=== PATIENT | female | born 1945 | race Caucasian/White ===

== ENCOUNTER 2020-08-15 07:06 | Inpatient (IN) | payer OTHER, BC ==
[2020-08-15 08:28] LABS: BASO % 0.7 % (0-2.0); EOS % 0.1 % (0-4.5); HEMATOCRIT 34.8 % (32.4-45.2); HEMOGLOBIN 11.8 GM/dL (10.7-15.3); LYMPH % 9.3 % (8-40); MCH 30.6 pg (25.7-33.7); MEAN CELL VOLUME 90.1 fl (80-96); MEAN PLT VOLUME 9.7 fl (7.5-11.1); NEUT % 80.9 % (42.8-82.8); PLATELET COUNT 235 K/MM3 (134-434); RBC 3.86 M/mm3 (3.60-5.2)
[2020-08-15 08:49] LABS: EPI CELLS 28 /uL (0-25.1); HYALINE CASTS 0 /uL (0-3.1); URINE APPEARANCE TURBID; URINE BACTERIA 222 /uL (0-1359); URINE BILIRUBIN NEGATIVE (NEGATIVE); URINE COLOR YELLOW; URINE GLUCOSE (UA) NEGATIVE (NEGATIVE); URINE KETONE NEGATIVE (NEGATIVE); URINE LEUK ESTERASE TRACE (NEGATIVE); URINE NITRITE NEGATIVE (NEGATIVE); URINE PROTEIN NEGATIVE (NEGATIVE); URINE UROBILINOGEN 0.2 mg/dL (0.2-1.0); URINE WBC 24 /uL (0-25.8)
[2020-08-15 08:52] LABS: CALCIUM 8.9 mg/dL (8.5-10.1); POTASSIUM 3.9 mmol/L (3.5-5.1)
[2020-08-15 08:54] LABS: ALBUMIN 3.6 g/dl (3.4-5.0); BLOOD UREA NITROGEN 33.7 mg/dL (7-18)
[2020-08-15 08:56] LABS: CREATININE 1.3 mg/dL (0.55-1.3)
[2020-08-15 08:57] LABS: TOT PROT 6.8 g/dl (6.4-8.2)
[2020-08-15] MEDS ORDERED: CEFTRIAXONE 2,000 MG in DEXTROSE 5%-WATER - 50 ML IVPB ONE (09:52)
[2020-08-15] MEDS ORDERED: SODIUM CHLORIDE 0.9% 500 ML INFUS.BAG IV ONE ×2 (09:52→23:12)
[2020-08-15] MEDS ORDERED: CEFTRIAXONE 2 GM/100 ML BAG IVPB ONE (10:02)
[2020-08-15] MEDS ORDERED: ACETAMINOPHEN 1000 MG/100 ML VIAL (NON FORMULARY) IVPB ONE (10:14)
[2020-08-15] MEDS ORDERED: ACETAMINOPHEN INJECTION 100 ML IVPB ONE (10:23)
[2020-08-15 10:42] LABS: INR 1.7 (0.83-1.09); PROTHROMBIN TIME (PATIENT) 20.6 SEC (9.7-13.0)
[2020-08-15 14:50] LABS: URINE CRYSTALS PRESENT /hpf; URINE RBC 114.3 /uL (0-23.9)
[2020-08-15] MEDS ORDERED: ONDANSETRON 4 MG/2 ML VIAL ONE (15:22)
[2020-08-15] MEDS ORDERED: KETOROLAC TROMETHAMINE 15 MG/ML VIAL IVPUSH ONE (15:22)
[2020-08-15] MEDS ORDERED: ONDANSETRON 4 MG/2 ML VIAL IVPUSH ONE (15:22)
[2020-08-15] MEDS ORDERED: KETOROLAC TROMETHAMINE 15 MG/ML VIAL ONE (15:23)
[2020-08-15 17:36] VITALS: BMI 35.5
[2020-08-15] MEDS ORDERED: TAMSULOSIN HCL 0.4 MG CAP PO ONE (23:01)
[2020-08-15] MEDS ORDERED: HEPARIN NA (PORCINE) 5,000 UNITS/ML 1ML VIAL IVPUSH PRN (23:02)
[2020-08-16] MEDS: SODIUM CHLORIDE 1,000 ML IV SCH ×3 (00:22→23:21)
[2020-08-16] MEDS: HEPARIN - 25,000 UNIT in SODIUM CHLORIDE 495 ML IV SCH ×2 (00:30→13:50)
[2020-08-16 00:33] LABS: INR 1.83 (0.83-1.09); PROTHROMBIN TIME (PATIENT) 22.1 SEC (9.7-13.0)
[2020-08-16 00:36] LABS: ACTIVATED PTT 32.5 SECONDS (25.2-36.5)
[2020-08-16 08:42] LABS: BASO % 0.8 % (0-2.0); EOS % 2.1 % (0-4.5); HEMATOCRIT 30.2 % (32.4-45.2); HEMOGLOBIN 10.2 GM/dL (10.7-15.3); LYMPH % 15.4 % (8-40); MCH 30.7 pg (25.7-33.7); MCHC 33.7 g/dl (32.0-36.0); MEAN PLT VOLUME 10.5 fl (7.5-11.1); MONO % 10.1 % (3.8-10.2); NEUT % 71.6 % (42.8-82.8); PLATELET COUNT 161 K/MM3 (134-434); RBC 3.31 M/mm3 (3.60-5.2); RDW 14.2 % (11.6-15.6)
[2020-08-16 09:12] LABS: CALCIUM 7.6 mg/dL (8.5-10.1)
[2020-08-16 09:13] LABS: ALBUMIN 2.9 g/dl (3.4-5.0); BLOOD UREA NITROGEN 31.6 mg/dL (7-18); MAGNESIUM 1.7 mg/dL (1.8-2.4)
[2020-08-16 09:15] LABS: URIC ACID 4.7 mg/dL (2.6-7.2)
[2020-08-16 09:17] LABS: BILIRUBIN,TOTAL 0.7 mg/dL (0.2-1); CREATININE 1.5 mg/dL (0.55-1.3); PHOSPHOROUS 3.2 mg/dL (2.5-4.9); TOT PROT 5.6 g/dl (6.4-8.2)
[2020-08-16] MEDS ORDERED: DEXTROSE 5%-WATER - 50 ML IVPB ONE (09:50)
[2020-08-16] MEDS ORDERED: cefTRIAXone SODIUM 1 GM VIAL ONE (09:50)
[2020-08-16] MEDS: LOSARTAN POTASSIUM 50 MG TABLET PO SCH (09:52)
[2020-08-16] MEDS: TAMSULOSIN HCL 0.4 MG CAP PO SCH (09:52)
[2020-08-16] MEDS: CEFTRIAXONE 1 GM in DEXTROSE 5%-WATER - 50 ML IVPB SCH (09:52)
[2020-08-16] MEDS: HEPARIN NA (PORCINE) 5,000 UNITS/ML 1ML VIAL IVPUSH PRN ×2 (13:49→21:00)
[2020-08-16] MEDS ORDERED: WARFARIN NA 3 MG TABLET PO SCH (18:00)
[2020-08-16] MEDS ORDERED: ACETAMINOPHEN 325 MG TABLET (FP) PO ONE (20:56)
[2020-08-16] MEDS ORDERED: LIDOCAINE 5% TOPICAL PATCH TP ONE (20:56)
[2020-08-16] MEDS: ROSUVASTATIN CA 5 MG TABLET (FP) PO SCH (23:14)
[2020-08-17] MEDS ORDERED: LIDOCAINE PATCH REMOVAL MC SCH (09:00)
[2020-08-17 10:14] LABS: POTASSIUM 4.2 mmol/L (3.5-5.1)
[2020-08-17 10:16] LABS: ALBUMIN 3.1 g/dl (3.4-5.0); BLOOD UREA NITROGEN 29.4 mg/dL (7-18); CALCIUM 8.2 mg/dL (8.5-10.1)
[2020-08-17 10:17] LABS: HEMATOCRIT 31.3 % (32.4-45.2); HEMOGLOBIN 10.4 GM/dL (10.7-15.3); MCH 30.5 pg (25.7-33.7); MCHC 33.3 g/dl (32.0-36.0); MEAN CELL VOLUME 91.5 fl (80-96); MEAN PLT VOLUME 10.7 fl (7.5-11.1); PLATELET COUNT 185 K/MM3 (134-434); RBC 3.42 M/mm3 (3.60-5.2); RDW 14.3 % (11.6-15.6); WHITE BLOOD COUNT 8.8 K/mm3 (4.0-10.0)
[2020-08-17 10:24] LABS: CREATININE 1.5 mg/dL (0.55-1.3)
[2020-08-17 10:25] LABS: BILIRUBIN,TOTAL 0.6 mg/dL (0.2-1); TOT PROT 6.2 g/dl (6.4-8.2)
[2020-08-17] MEDS: TAMSULOSIN HCL 0.4 MG CAP PO SCH (10:29)
[2020-08-17] MEDS: LOSARTAN POTASSIUM 50 MG TABLET PO SCH (10:29)
[2020-08-17] MEDS: HEPARIN - 25,000 UNIT in SODIUM CHLORIDE 495 ML IV SCH (10:45)
[2020-08-17] MEDS ORDERED: cefTRIAXone SODIUM 1 GM VIAL ONE (11:32)
[2020-08-17] MEDS ORDERED: DEXTROSE 5%-WATER - 50 ML IVPB ONE (11:32)
[2020-08-17] MEDS: ACETAMINOPHEN 1000 MG/100 ML VIAL (NON FORMULARY) IVPB PRN ×2 (11:43→21:05)
[2020-08-17] MEDS: CEFTRIAXONE 1 GM in DEXTROSE 5%-WATER - 50 ML IVPB SCH (11:44)
[2020-08-17] MEDS: SODIUM CHLORIDE 1,000 ML IV SCH (23:30)
[2020-08-18 09:20] LABS: HEMATOCRIT 28.5 % (32.4-45.2); HEMOGLOBIN 9.6 GM/dL (10.7-15.3); MCH 30.6 pg (25.7-33.7); MCHC 33.6 g/dl (32.0-36.0); MEAN PLT VOLUME 10.8 fl (7.5-11.1); PLATELET COUNT 173 K/MM3 (134-434); RBC 3.14 M/mm3 (3.60-5.2); RDW 13.9 % (11.6-15.6); WHITE BLOOD COUNT 6.8 K/mm3 (4.0-10.0)
[2020-08-18 09:43] LABS: POTASSIUM 3.9 mmol/L (3.5-5.1)
[2020-08-18 09:47] LABS: ALBUMIN 2.8 g/dl (3.4-5.0); BLOOD UREA NITROGEN 22.2 mg/dL (7-18); CALCIUM 7.9 mg/dL (8.5-10.1)
[2020-08-18 09:50] LABS: CREATININE 1.3 mg/dL (0.55-1.3)
[2020-08-18 09:52] LABS: BILIRUBIN,TOTAL 0.6 mg/dL (0.2-1); TOT PROT 5.6 g/dl (6.4-8.2)
[2020-08-18] MEDS: HEPARIN - 25,000 UNIT in SODIUM CHLORIDE 495 ML IV SCH (10:00)
[2020-08-18] MEDS: TAMSULOSIN HCL 0.4 MG CAP PO SCH (12:14)
[2020-08-18] MEDS: LOSARTAN POTASSIUM 50 MG TABLET PO SCH (12:14)
[2020-08-18] MEDS: CEFTRIAXONE 1 GM in DEXTROSE 5%-WATER - 50 ML IVPB SCH (12:14)
[2020-08-18] MEDS: SODIUM CHLORIDE 1,000 ML IV SCH ×2 (12:14→20:25)
[2020-08-18] MEDS ORDERED: cefTRIAXone SODIUM 1 GM VIAL ONE (13:52)
[2020-08-18] MEDS ORDERED: DEXTROSE 5%-WATER - 50 ML IVPB ONE (13:53)
[2020-08-18] MEDS: traMADol HCL 50 MG TABLET PO PRN (18:25)
[2020-08-18 19:03] LABS: HEMATOCRIT 32.1 % (32.4-45.2); HEMOGLOBIN 10.7 GM/dL (10.7-15.3); MCH 30.5 pg (25.7-33.7); MCHC 33.3 g/dl (32.0-36.0); MEAN CELL VOLUME 91.4 fl (80-96); MEAN PLT VOLUME 10.8 fl (7.5-11.1); PLATELET COUNT 214 K/MM3 (134-434); RBC 3.51 M/mm3 (3.60-5.2); RDW 13.8 % (11.6-15.6); WHITE BLOOD COUNT 9.2 K/mm3 (4.0-10.0)
[2020-08-19] MEDS: SODIUM CHLORIDE 1,000 ML IV SCH (03:38)
[2020-08-19] MEDS: HEPARIN - 25,000 UNIT in SODIUM CHLORIDE 495 ML IV SCH (06:35)
[2020-08-19 09:14] LABS: HEMATOCRIT 29.9 % (32.4-45.2); HEMOGLOBIN 9.9 GM/dL (10.7-15.3); MCH 30.2 pg (25.7-33.7); MCHC 33.1 g/dl (32.0-36.0); MEAN CELL VOLUME 91.3 fl (80-96); MEAN PLT VOLUME 10.3 fl (7.5-11.1); PLATELET COUNT 213 K/MM3 (134-434); RBC 3.27 M/mm3 (3.60-5.2); RDW 14.4 % (11.6-15.6); WHITE BLOOD COUNT 8.6 K/mm3 (4.0-10.0)
[2020-08-19 09:31] LABS: POTASSIUM 3.8 mmol/L (3.5-5.1)
[2020-08-19 09:33] LABS: CALCIUM 7.8 mg/dL (8.5-10.1)
[2020-08-19 09:34] LABS: ALBUMIN 2.9 g/dl (3.4-5.0)
[2020-08-19 09:37] LABS: CREATININE 1.1 mg/dL (0.55-1.3)
[2020-08-19 09:38] LABS: BILIRUBIN,TOTAL 0.4 mg/dL (0.2-1); TOT PROT 5.9 g/dl (6.4-8.2)
[2020-08-19] MEDS ORDERED: DEXTROSE 5%-WATER - 50 ML IVPB ONE (10:17)
[2020-08-19] MEDS ORDERED: cefTRIAXone SODIUM 1 GM VIAL ONE (10:17)
[2020-08-19] MEDS: CEFTRIAXONE 1 GM in DEXTROSE 5%-WATER - 50 ML IVPB SCH (10:18)
[2020-08-19] MEDS: LOSARTAN POTASSIUM 50 MG TABLET PO SCH (10:19)
[2020-08-19] MEDS: TAMSULOSIN HCL 0.4 MG CAP PO SCH (10:19)
[2020-08-19] MEDS ORDERED: FUROSEMIDE 40 MG/4 ML INJECTABLE VIAL IVPUSH ONE (10:30)
[2020-08-19] MEDS: NYSTATIN POWDER 100,000 UNITS/GM - 15 GM TOPICAL POWDER TP SCH (16:10)
[2020-08-19 16:49] LABS: INR 1.2 (0.83-1.09); PROTHROMBIN TIME (PATIENT) 14.5 SEC (9.7-13.0)
[2020-08-19 16:52] LABS: ACTIVATED PTT 28.3 SECONDS (25.2-36.5)
[2020-08-19] MEDS: WARFARIN NA 5 MG TABLET PO SCH (17:44)
[2020-08-19] MEDS: traMADol HCL 50 MG TABLET PO PRN (20:08)
[2020-08-19] MEDS: ROSUVASTATIN CA 5 MG TABLET (FP) PO SCH (22:07)
[2020-08-20 09:15] LABS: BASO % 0.8 % (0-2.0); EOS % 5.2 % (0-4.5); HEMATOCRIT 29.7 % (32.4-45.2); HEMOGLOBIN 10.1 GM/dL (10.7-15.3); LYMPH % 16.2 % (8-40); MCH 30.7 pg (25.7-33.7); MCHC 33.9 g/dl (32.0-36.0); MEAN CELL VOLUME 90.7 fl (80-96); MEAN PLT VOLUME 10.1 fl (7.5-11.1); MONO % 12.7 % (3.8-10.2); NEUT % 65.1 % (42.8-82.8); PLATELET COUNT 223 K/MM3 (134-434); RBC 3.27 M/mm3 (3.60-5.2); RDW 13.9 % (11.6-15.6); WHITE BLOOD COUNT 7.4 K/mm3 (4.0-10.0)
[2020-08-20 09:22] LABS: INR 1.19 (0.83-1.09); PROTHROMBIN TIME (PATIENT) 14.6 SEC (9.7-13.0)
[2020-08-20 09:25] LABS: ACTIVATED PTT 26.1 SECONDS (25.2-36.5)
[2020-08-20] MEDS ORDERED: cefTRIAXone SODIUM 1 GM VIAL ONE (10:06)
[2020-08-20] MEDS ORDERED: DEXTROSE 5%-WATER - 50 ML IVPB ONE (10:07)
[2020-08-20] MEDS: TAMSULOSIN HCL 0.4 MG CAP PO SCH (10:09)
[2020-08-20] MEDS: CEFTRIAXONE 1 GM in DEXTROSE 5%-WATER - 50 ML IVPB SCH (10:09)
[2020-08-20] MEDS: LOSARTAN POTASSIUM 50 MG TABLET PO SCH (10:09)
[2020-08-20] MEDS: NYSTATIN POWDER 100,000 UNITS/GM - 15 GM TOPICAL POWDER TP SCH (10:13)
[2020-08-20 10:15] LABS: POTASSIUM 3.7 mmol/L (3.5-5.1)
[2020-08-20 10:43] LABS: MAGNESIUM 1.7 mg/dL (1.8-2.4)
[2020-08-20 10:57] LABS: TOT PROT 5.9 g/dl (6.4-8.2)
[2020-08-20 10:58] LABS: BILIRUBIN,TOTAL 0.5 mg/dL (0.2-1)
[2020-08-20 11:27] LABS: BLOOD UREA NITROGEN 17.2 mg/dL (7-18); CALCIUM 8.3 mg/dL (8.5-10.1)
[2020-08-20 11:30] LABS: CREATININE 1.3 mg/dL (0.55-1.3); PHOSPHOROUS 2.9 mg/dL (2.5-4.9)
[2020-08-20] MEDS: ENOXAPARIN NA (PORCINE) 80 MG/0.8 ML DISP.SYRIN SQ SCH ×2 (12:18→22:15)
[2020-08-20] MEDS ORDERED: MAGNESIUM 1GM/D5W 100ML - 100 ML IVPB IVPB ONE (12:30)
[2020-08-20] MEDS ORDERED: FUROSEMIDE 40 MG TABLET (FP) PO ONE (12:30)
[2020-08-20] MEDS ORDERED: WARFARIN NA 5 MG TABLET PO SCH (18:00)
[2020-08-20] MEDS: WARFARIN NA 5 MG TABLET PO SCH (18:04)
[2020-08-21 09:26] LABS: HEMATOCRIT 30.4 % (32.4-45.2); HEMOGLOBIN 10.5 GM/dL (10.7-15.3); MCH 30.9 pg (25.7-33.7); MCHC 34.4 g/dl (32.0-36.0); MEAN CELL VOLUME 89.9 fl (80-96); MEAN PLT VOLUME 9.9 fl (7.5-11.1); PLATELET COUNT 242 K/MM3 (134-434); RBC 3.38 M/mm3 (3.60-5.2); RDW 13.9 % (11.6-15.6)
[2020-08-21 09:45] LABS: INR 1.36 (0.83-1.09); PROTHROMBIN TIME (PATIENT) 16.3 SEC (9.7-13.0)
[2020-08-21] MEDS ORDERED: cefTRIAXone SODIUM 1 GM VIAL ONE (10:05)
[2020-08-21] MEDS ORDERED: DEXTROSE 5%-WATER - 50 ML IVPB ONE (10:05)
[2020-08-21] MEDS: LOSARTAN POTASSIUM 50 MG TABLET PO SCH (10:07)
[2020-08-21] MEDS: ENOXAPARIN NA (PORCINE) 80 MG/0.8 ML DISP.SYRIN SQ SCH ×2 (10:07→21:54)
[2020-08-21] MEDS: TAMSULOSIN HCL 0.4 MG CAP PO SCH (10:07)
[2020-08-21] MEDS: NYSTATIN POWDER 100,000 UNITS/GM - 15 GM TOPICAL POWDER TP SCH (10:08)
[2020-08-21] MEDS: CEFTRIAXONE 1 GM in DEXTROSE 5%-WATER - 50 ML IVPB SCH (10:08)
[2020-08-21] MEDS ORDERED: FUROSEMIDE 40 MG TABLET (FP) PO ONE (11:33)
[2020-08-21] MEDS: NYSTATIN/TRIAMCINOLONE TOPICAL OINTMENT 15 GM TUBE TP SCH ×2 (13:27→21:54)
[2020-08-21] MEDS: WARFARIN NA 5 MG TABLET PO SCH (17:21)
[2020-08-21] MEDS: ROSUVASTATIN CA 5 MG TABLET (FP) PO SCH (21:53)
[2020-08-22] MEDS ORDERED: FUROSEMIDE 40 MG/4 ML INJECTABLE VIAL IVPUSH ONE (08:30)
[2020-08-22 09:33] LABS: BASO % 1.1 % (0-2.0); EOS % 3.1 % (0-4.5); HEMOGLOBIN 10.8 GM/dL (10.7-15.3); INR 1.46 (0.83-1.09); MCH 30.3 pg (25.7-33.7); MCHC 33.7 g/dl (32.0-36.0); MEAN CELL VOLUME 89.9 fl (80-96); MEAN PLT VOLUME 9.5 fl (7.5-11.1); MONO % 11.2 % (3.8-10.2); NEUT % 67.6 % (42.8-82.8); PLATELET COUNT 268 K/MM3 (134-434); PROTHROMBIN TIME (PATIENT) 17.8 SEC (9.7-13.0); RBC 3.56 M/mm3 (3.60-5.2); RDW 13.7 % (11.6-15.6)
[2020-08-22 09:51] LABS: POTASSIUM 3.5 mmol/L (3.5-5.1)
[2020-08-22 09:54] LABS: ALBUMIN 3.2 g/dl (3.4-5.0); CALCIUM 8.8 mg/dL (8.5-10.1)
[2020-08-22 09:55] LABS: BLOOD UREA NITROGEN 17.8 mg/dL (7-18); MAGNESIUM 1.6 mg/dL (1.8-2.4)
[2020-08-22 09:58] LABS: CREATININE 1.4 mg/dL (0.55-1.3); PHOSPHOROUS 3.4 mg/dL (2.5-4.9)
[2020-08-22 09:59] LABS: BILIRUBIN,TOTAL 0.8 mg/dL (0.2-1); TOT PROT 6.6 g/dl (6.4-8.2)
[2020-08-22] MEDS ORDERED: SODIUM CHLORIDE 500 ML IV STA (09:59)
[2020-08-22] MEDS ORDERED: MAGNESIUM SULF 50% (8.12 MEQ/2 ML-1 GM VIAL) IVPB ONE (10:45)
[2020-08-22] MEDS: TAMSULOSIN HCL 0.4 MG CAP PO SCH (10:58)
[2020-08-22] MEDS: ENOXAPARIN NA (PORCINE) 80 MG/0.8 ML DISP.SYRIN SQ SCH ×2 (11:02→21:59)
[2020-08-22] MEDS: LOSARTAN POTASSIUM 50 MG TABLET PO SCH (11:03)
[2020-08-22] MEDS: NYSTATIN POWDER 100,000 UNITS/GM - 15 GM TOPICAL POWDER TP SCH (11:10)
[2020-08-22] MEDS: NYSTATIN/TRIAMCINOLONE TOPICAL OINTMENT 15 GM TUBE TP SCH ×2 (11:10→21:59)
[2020-08-22] MEDS ORDERED: PT OWN MED DRAWER 7, Y5N ONE (18:02)
[2020-08-22] MEDS: WARFARIN NA 5 MG TABLET PO SCH (18:04)
[2020-08-22 18:32] LABS: POTASSIUM 3.3 mmol/L (3.5-5.1)
[2020-08-22 18:34] LABS: BLOOD UREA NITROGEN 20.5 mg/dL (7-18); CALCIUM 8.5 mg/dL (8.5-10.1)
[2020-08-22 18:38] LABS: CREATININE 1.4 mg/dL (0.55-1.3)
[2020-08-23] MEDS: TAMSULOSIN HCL 0.4 MG CAP PO SCH (08:37)
[2020-08-23 09:03] LABS: INR 1.51 (0.83-1.09)
[2020-08-23 09:30] LABS: POTASSIUM 3.4 mmol/L (3.5-5.1)
[2020-08-23 10:08] LABS: CALCIUM 8.5 mg/dL (8.5-10.1)
[2020-08-23 10:09] LABS: BLOOD UREA NITROGEN 19.4 mg/dL (7-18); MAGNESIUM 1.8 mg/dL (1.8-2.4)
[2020-08-23 10:11] LABS: BILIRUBIN,TOTAL 0.6 mg/dL (0.2-1); CREATININE 1.3 mg/dL (0.55-1.3)
[2020-08-23 10:12] LABS: BASO % 1.1 % (0-2.0); EOS % 3.8 % (0-4.5); HEMATOCRIT 28.9 % (32.4-45.2); HEMOGLOBIN 9.8 GM/dL (10.7-15.3); LYMPH % 16.6 % (8-40); MCH 30.6 pg (25.7-33.7); MCHC 33.8 g/dl (32.0-36.0); MEAN CELL VOLUME 90.5 fl (80-96); MONO % 13.2 % (3.8-10.2); NEUT % 65.3 % (42.8-82.8); PHOSPHOROUS 3.5 mg/dL (2.5-4.9); PLATELET COUNT 276 K/MM3 (134-434); RDW 13.8 % (11.6-15.6); WHITE BLOOD COUNT 7.1 K/mm3 (4.0-10.0)
[2020-08-23] MEDS ORDERED: PT OWN MED DRAWER 7, Y5N ONE (10:52)
[2020-08-23] MEDS: ENOXAPARIN NA (PORCINE) 80 MG/0.8 ML DISP.SYRIN SQ SCH ×2 (10:57→21:48)
[2020-08-23] MEDS: LOSARTAN POTASSIUM 50 MG TABLET PO SCH (10:58)
[2020-08-23] MEDS ORDERED: POTASSIUM CHLORIDE TABS 20 MEQ TABLET.ER (FP) PO ONE (11:14)
[2020-08-23] MEDS ORDERED: POTASSIUM CHLORIDE ORAL LIQUID 20 MEQ/15 ML PO ONE (13:45)
[2020-08-23] MEDS: NYSTATIN POWDER 100,000 UNITS/GM - 15 GM TOPICAL POWDER TP SCH (15:55)
[2020-08-23] MEDS: NYSTATIN/TRIAMCINOLONE TOPICAL OINTMENT 15 GM TUBE TP SCH ×2 (15:56→21:52)
[2020-08-23 17:59] LABS: INR 1.53 (0.83-1.09); PROTHROMBIN TIME (PATIENT) 18.3 SEC (9.7-13.0)
[2020-08-23] MEDS: WARFARIN NA 5 MG TABLET PO SCH (18:26)
[2020-08-23] MEDS: ROSUVASTATIN CA 5 MG TABLET (FP) PO SCH (21:51)
[2020-08-24 09:09] LABS: BASO % 1.3 % (0-2.0); EOS % 4.5 % (0-4.5); HEMOGLOBIN 9.6 GM/dL (10.7-15.3); LYMPH % 18.2 % (8-40); MCH 30.4 pg (25.7-33.7); MCHC 33.3 g/dl (32.0-36.0); MEAN CELL VOLUME 91.3 fl (80-96); MEAN PLT VOLUME 9.9 fl (7.5-11.1); MONO % 13.9 % (3.8-10.2); NEUT % 62.1 % (42.8-82.8); PLATELET COUNT 286 K/MM3 (134-434); RBC 3.17 M/mm3 (3.60-5.2); RDW 14.1 % (11.6-15.6); WHITE BLOOD COUNT 6.8 K/mm3 (4.0-10.0)
[2020-08-24 09:38] LABS: INR 1.68 (0.83-1.09); PROTHROMBIN TIME (PATIENT) 20.3 SEC (9.7-13.0)
[2020-08-24 09:40] LABS: POTASSIUM 4.4 mmol/L (3.5-5.1)
[2020-08-24 09:41] LABS: ACTIVATED PTT 38.1 SECONDS (25.2-36.5)
[2020-08-24] MEDS: NYSTATIN POWDER 100,000 UNITS/GM - 15 GM TOPICAL POWDER TP SCH (09:47)
[2020-08-24] MEDS: LOSARTAN POTASSIUM 50 MG TABLET PO SCH (09:50)
[2020-08-24] MEDS: ENOXAPARIN NA (PORCINE) 80 MG/0.8 ML DISP.SYRIN SQ SCH ×2 (09:50→21:40)
[2020-08-24] MEDS: TAMSULOSIN HCL 0.4 MG CAP PO SCH (09:50)
[2020-08-24] MEDS: NYSTATIN/TRIAMCINOLONE TOPICAL OINTMENT 15 GM TUBE TP SCH ×2 (09:51→21:40)
[2020-08-24 09:56] LABS: ALBUMIN 3.1 g/dl (3.4-5.0); BLOOD UREA NITROGEN 22.9 mg/dL (7-18); CALCIUM 8.5 mg/dL (8.5-10.1); MAGNESIUM 1.8 mg/dL (1.8-2.4)
[2020-08-24 09:59] LABS: CREATININE 1.4 mg/dL (0.55-1.3); PHOSPHOROUS 3.3 mg/dL (2.5-4.9)
[2020-08-24 10:01] LABS: BILIRUBIN,TOTAL 0.5 mg/dL (0.2-1); TOT PROT 6.4 g/dl (6.4-8.2)
[2020-08-24] MEDS: WARFARIN NA 5 MG TABLET PO SCH (18:23)
[2020-08-25 10:09] LABS: BASO % 1.3 % (0-2.0); EOS % 3.7 % (0-4.5); HEMOGLOBIN 10.2 GM/dL (10.7-15.3); MCH 30.9 pg (25.7-33.7); MCHC 34.1 g/dl (32.0-36.0); MEAN CELL VOLUME 90.7 fl (80-96); MEAN PLT VOLUME 9.9 fl (7.5-11.1); MONO % 8.5 % (3.8-10.2); NEUT % 64.5 % (42.8-82.8); PLATELET COUNT 286 K/MM3 (134-434); RBC 3.31 M/mm3 (3.60-5.2); WHITE BLOOD COUNT 5.8 K/mm3 (4.0-10.0)
[2020-08-25 10:12] LABS: ACTIVATED PTT 38.1 SECONDS (25.2-36.5); INR 1.86 (0.83-1.09); PROTHROMBIN TIME (PATIENT) 22.1 SEC (9.7-13.0)
[2020-08-25 10:44] LABS: ALBUMIN 3.2 g/dl (3.4-5.0); BLOOD UREA NITROGEN 23.3 mg/dL (7-18); CREATININE 1.3 mg/dL (0.55-1.3); PHOSPHOROUS 3.1 mg/dL (2.5-4.9)
[2020-08-25 10:45] LABS: BILIRUBIN,TOTAL 0.4 mg/dL (0.2-1)
[2020-08-25] MEDS: TAMSULOSIN HCL 0.4 MG CAP PO SCH (10:45)
[2020-08-25] MEDS: LOSARTAN POTASSIUM 50 MG TABLET PO SCH (10:45)
[2020-08-25] MEDS: ENOXAPARIN NA (PORCINE) 80 MG/0.8 ML DISP.SYRIN SQ SCH (10:45)
[2020-08-25 10:46] LABS: CALCIUM 8.8 mg/dL (8.5-10.1); TOT PROT 6.6 g/dl (6.4-8.2)
[2020-08-25 10:47] LABS: MAGNESIUM 1.9 mg/dL (1.8-2.4)
[2020-08-25] MEDS: NYSTATIN POWDER 100,000 UNITS/GM - 15 GM TOPICAL POWDER TP SCH (10:48)
[2020-08-25] MEDS: NYSTATIN/TRIAMCINOLONE TOPICAL OINTMENT 15 GM TUBE TP SCH (10:49)
[2020-08-25 11:12] LABS: POTASSIUM 3.9 mmol/L (3.5-5.1)
[2020-08-25 14:37] VITALS: BP 135/78; PULSE 84; TEMP 97.7
[2020-08-25] MEDS: WARFARIN NA 5 MG TABLET PO SCH (17:33)
== END 2020-08-25 18:13 | disposition home or self-care (01) | DRG 690 ==
LOC: JER 07:06 → JERBED 10:40 → J6S 17:15
PROVIDERS: ADMIT Internal Medicine; ATTEND Internal Medicine
DX: N13.6 Pyonephrosis (principal); D68.9 Coagulation defect, unspecified; D68.59 Other primary thrombophilia; D68.2 Hereditary deficiency of other clotting factors; N13.8 Other obstructive and reflux uropathy; I10 Essential (primary) hypertension; E78.5 Hyperlipidemia, unspecified; R33.9 Retention of urine, unspecified; R31.9 Hematuria, unspecified; N28.1 Cyst of kidney, acquired; N17.9 Acute kidney failure, unspecified; T50.1X5A Adverse effect of loop [high-ceiling] diuretics, initial encounter
CPT/HCPCS: 36415; 74018-TC-FY; 74176-TC; 76775-TC; 80048; 80053; 81003; 83735; 84100; 84550; 85025; 85027; 85610; 85730; 86850; 86900; 86901; 87086; 93971; 99285-25; C9803; J0131; J1644; U0003

== ENCOUNTER 2020-08-26 19:21 | Emergency (ER) | payer OTHER, BC ==
[2020-08-26 19:32] VITALS: BP 145/56; PULSE 88; BMI 29.6
[2020-08-26 19:37] VITALS: TEMP 98.7
[2020-08-26] MEDS ORDERED: ACETAMINOPHEN 325 MG TABLET (FP) PO ONE (21:02)
[2020-08-26] MEDS ORDERED: ACETAMINOPHEN 325 MG TABLET (FP) ONE (21:12)
[2020-08-26 22:33] LABS: INR 2.2 (0.83-1.09); PROTHROMBIN TIME (PATIENT) 26.4 SEC (9.7-13.0)
[2020-08-26 22:35] LABS: ACTIVATED PTT 40.2 SECONDS (25.2-36.5)
[2020-08-26] MEDS ORDERED: FUROSEMIDE 40 MG/4 ML INJECTABLE VIAL IVPUSH ONE (23:05)
[2020-08-26] MEDS ORDERED: ENOXAPARIN NA (PORCINE) 80 MG/0.8 ML DISP.SYRIN SQ ONE (23:06)
[2020-08-26] MEDS ORDERED: FUROSEMIDE 20 MG TABLET (FP) PO ONE (23:30)
[2020-08-26] MEDS ORDERED: FUROSEMIDE 40 MG TABLET (FP) ONE (23:36)
== END 2020-08-27 | disposition home or self-care (01) ==
LOC: JER 19:21
PROC: 3E033NZ Introduction of Analgesics, Hypnotics, Sedatives into Peripheral Vein, Percutaneous Approach (ICD-10-PCS; principal; 2020-08-26)
DX: L03.115 Cellulitis of right lower limb (principal)
CPT/HCPCS: 36415; 85610; 85730; 93971-TC; 99284-25

== ENCOUNTER 2021-11-17 16:04 | Emergency (ER) | payer OTHER, BC ==
[2021-11-17 16:15] VITALS: BMI 28.3
[2021-11-17 17:29] VITALS: TEMP 98.7
[2021-11-17] MEDS ORDERED: ACETAMINOPHEN 1000 MG/100 ML BAG IVPB ONE (17:30)
[2021-11-17] MEDS ORDERED: LACTATED RINGERS SOLUTION 1000 ML INFUS.BAG IV ONE (17:30)
[2021-11-17] MEDS ORDERED: ACETAMINOPHEN INJECTION 100 ML IVPB ONE (17:47)
[2021-11-17 17:53] LABS: BASO % 0.6 % (0-2.0); EOS % 0.2 % (0-4.5); HEMATOCRIT 36.2 % (32.4-45.2); HEMOGLOBIN 12.1 GM/dL (10.7-15.3); LYMPH % 7.2 % (8-40); MCH 30.1 pg (25.7-33.7); MCHC 33.6 g/dl (32.0-36.0); MEAN CELL VOLUME 89.7 fl (80-96); MEAN PLT VOLUME 9.2 fl (7.5-11.1); MONO % 5.3 % (3.8-10.2); NEUT % 86.7 % (42.8-82.8); PLATELET COUNT 255 10^3/uL (134-434); RBC 4.04 M/mm3 (3.60-5.2); RDW 13.9 % (11.6-15.6); WHITE BLOOD COUNT 10.1 K/mm3 (4.0-10.0)
[2021-11-17 18:00] LABS: INR 1.18 (0.83-1.09); PROTHROMBIN TIME (PATIENT) 13.6 SEC (9.7-13.0)
[2021-11-17 18:01] LABS: EPI CELLS 30 /uL (0-25.1); HYALINE CASTS 3 /uL (0-3.1); URINE APPEARANCE CLOUDY; URINE BACTERIA 5 /uL (0-1359); URINE BILIRUBIN NEGATIVE (NEGATIVE); URINE COLOR YELLOW; URINE GLUCOSE (UA) NEGATIVE (NEGATIVE); URINE KETONE TRACE (NEGATIVE); URINE LEUK ESTERASE 2+ (NEGATIVE); URINE NITRITE NEGATIVE (NEGATIVE); URINE PROTEIN NEGATIVE (NEGATIVE); URINE UROBILINOGEN 0.2 mg/dL (0.2-1.0); URINE WBC 54 /uL (0-25.8)
[2021-11-17 18:14] LABS: ALBUMIN 3.9 g/dl (3.4-5.0); BLOOD UREA NITROGEN 33.9 mg/dL (7-18); CALCIUM 9.2 mg/dL (8.5-10.1)
[2021-11-17 18:17] LABS: CREATININE 1.4 mg/dL (0.55-1.3)
[2021-11-17 18:19] LABS: BILIRUBIN,TOTAL 0.6 mg/dL (0.2-1)
[2021-11-17] MEDS ORDERED: morphine CARPU-JECT 2 MG/1 ML DISP.SYRIN IVPUSH ONE (19:44)
[2021-11-17 19:46] LABS: URINE RBC 820 /uL (0-23.9)
[2021-11-17] MEDS ORDERED: LIDOCAINE 5% TOPICAL PATCH ONE (20:03)
[2021-11-17] MEDS ORDERED: LIDOCAINE 5% TOPICAL PATCH TP ONE (20:23)
[2021-11-17] MEDS ORDERED: LIDOCAINE PATCH REMOVAL MC SCH (22:00)
[2021-11-17 22:25] VITALS: BP 124/67; PULSE 72
== END 2021-11-17 22:31 | disposition home or self-care (01) ==
LOC: JER 16:04
PROC: 3E033GC Introduction of Other Therapeutic Substance into Peripheral Vein, Percutaneous Approach (ICD-10-PCS; principal; 2021-11-17)
DX: R10.9 Unspecified abdominal pain (principal)
CPT/HCPCS: 36415; 74176-TC; 80053; 81003; 85025; 85610; 85730; 86850; 86900; 86901; 87086; 93005; 93010; 99285-25